=== PATIENT | male | born 1995 | race Two or more races ===

== ENCOUNTER 2025-03-07 01:56 | Emergency (ER) | payer MEDICAID, OTHER ==
[~2025-03-07] VITALS: Ht 170.2 cm; Wt 40.8 kg
[2025-03-07 02:20] VITALS: TEMP 95.9
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
[2025-03-07] MEDS: EPINEPHrine HCL 250 ML IV SCH (02:30)
[2025-03-07 02:40] VITALS: BP 77/36; PULSE 78; RESP 16; O2SAT 99
[2025-03-07] MEDS ORDERED: EPINEPHrine HCL 250 ML IV SCH (02:45)
[2025-03-07] MEDS: VANCOMYCIN 1GM/250ML KIT 250 ML IV ONE (03:15)
[2025-03-07] MEDS: PANTOPRAZOLE 40 MG/10 ML VIAL INJ IV ONE (03:20)
[2025-03-07] MEDS: NOREPINEPHRINE 8 MG/250ML KIT 250 ML IV SCH (03:20)
--- NOTE | 2025-03-07 03:21 | DVH ---
CHEST RADIOGRAPH Indication: s/p intubation and central line Technique: Single frontal view of the chest was obtained COMPARISON: None FINDINGS: Lines and Tubes: Endotracheal tube tip projects approximately 3.0 cm above the level of the ki. Right internal jugular central venous catheter tip projects over the cavoatrial junction. Lungs: Diffuse moderately consolidative appearing bilateral pulmonary airspace disease. Pleura: No effusion. No pneumothorax. Cardiomediastinal contours: Unremarkable Bones: Unremarkable IMPRESSION: 1. Endotracheal tube and right internal jugular central venous catheter in appropriate position. 2. Diffuse moderately consolidative appearing bilateral pulmonary airspace disease.
[2025-03-07 03:26] LABS: Hematocrit 21.5 % (41.0-53.0); Mean Corpuscular Hemoglobin 23.1 pg (28.0-32.0); Mean Corpuscular Volume 97.0 fL (80.0-100.0)
[2025-03-07 03:35] LABS: Anion Gap 22.00001 (5-15); BUN/Creatinine Ratio 22.1 (10.0-20.0); Calcium 8.7 mg/dL (8.7-10.4)
[2025-03-07 03:36] LABS: Alanine Aminotransferase 57 U/L (7-40); Albumin 1.3 g/dL (3.2-4.8); Alkaline Phosphatase 297 U/L (46-116); Bilirubin, Total 0.2 mg/dL (0.2-1.0); Blood Urea Nitrogen 62 mg/dL (9-23); Chloride 90 mmol/L (98-107); Glucose 366 mg/dL (74-106); Sodium 122 mmol/L (136-145); Total Protein 3.7 g/dL (5.7-8.2)
--- NOTE | 2025-03-07 03:37 | RESUS ---
PATRICIA SOLIZ ASSESSSMENT History of Events History of Events: Family brought patient POV to the ED. Upon arrival to ED, Patient was unresposive with agonal respirations. Staff checked for a pulse and patient was pulseless. CPR initiated and patricia soliz was called. Patient was taken to bed 6. Initial Information Date: Mar 07, 2025 Time: 02:01 Location of Arrest: ER Arrest Witnessed: Yes CPR started initial time: 02:01 CPR started by whom: Hospital Staff Type of arrest: Cardiac, Respiratory, Adult, Witnessed Spontaneous Respirations: No Pulse Present: No Monitoring: ECG, Pulse Oximetry, Telemetry Crash Cart Opened and Supplies: Yes Airway Ventilation Breathing at Onset: Agonal Oxygen Delivery Method: Ambu-Bag Time of first Assisted Ventila: 02:01 Artificial Ventilation: Bag/Mask Intubation Time: 02:12 Intubation Size: 7.5 cuffed Intubated by: Dr. Bennett Intubation Attempts: 1 Intubated orally: Yes Intubated Nasaly: No Tube secured at: 22 (cm at teeth) Cricoid pressure done: Yes CO2 indicator used: Yes Confirmation: Auscultation, Exhaled CO2, Chest X-ray Suctioning (Oral/Tracheal): Yes Comments: Patient intubated after ROSC achieved. Coffee ground emesis noted. Circulation Circulation #1: Time: 02:01 Pulse Rate (adult): 0 Blood Pressure Systolic: 0 Blood Pressure Diastolic: 0 Temperature (Fahrenheit): 95.8 (F; temporal) Circulation #2: Time: 02:02 Pulse Rate (adult): 0 Blood Pressure Systolic: 0 Blood Pressure Diastolic: 0 Circulation Comment: Asystole Circulation #3: Time: 02:04 Pulse Rate (adult): 0 Blood Pressure Systolic: 0 Blood Pressure Diastolic: 0 Circulation Comment: Asystole Circulation #4: Time: 02:06 Pulse Rate (adult): 0 Blood Pressure Systolic: 0 Blood Pressure Diastolic: 0 Circulation Comment: PEA Circulation #5: Time: 02:08 Pulse Rate (adult): 86 Blood Pressure Systolic: 156 Blood Pressure Diastolic: 126 Circulation Comment: Rosc Circulation #6: Time: 02:13 Pulse Rate (adult): 80 Blood Pressure Systolic: 56 Blood Pressure Diastolic: 49 Procedure - IV Procedure - IV : IV start time: 02:13 IV Side: Right IV Location: Forearm Anterior IV Catheter Type: Saline Lock IV Placed: In Hospital IV Placed by Wendy Degroot RN IV Gauge: 20 IV Line Care: Saline Flush Procedure - Intraosseous Time of intraosseous: 02:01 Size of intraosseous: 22 Site of Intraosseous: Tibia hayes-medial (Proximal left tib) Intraosseous inserted by: Jose Reed RN Number of attempts for Intraos: 1 Medications & Response Medications and Responses #1: Medication Time: 02:02 ADULT Medications Given ADULT: Epinephrine 1 mg Route of Administration: IO Heart Rate: 0 EKG Rhythm: Asystole Blood Pressure Systolic: 0 Blood Pressure Diastolic: 0 Respiratory Rate: 0 EKG Rhythm: Asystole Medications and Responses #2: Medication Time: 02:04 ADULT Medications Given ADULT: Sodium Bacarbinate 50 meq Route of Administration: IO Heart Rate: 0 EKG Rhythm: Asystole Blood Pressure Systolic: 0 Blood Pressure Diastolic: 0 Respiratory Rate: 0 Medications and Responses #3: Medication Time: 02:05 ADULT Medications Given ADULT: D50 (amp) Route of Administration: IO Medication Comment: [id number] Heart Rate: 0 EKG Rhythm: Asystole Blood Pressure Systolic: 0 Blood Pressure Diastolic: 0 Respiratory Rate: 0 EKG Rhythm: Asystole Medications and Responses #4: Medication Time: 02:06 ADULT Medications Given ADULT: Epinephrine 1 mg Route of Administration: IO Heart Rate: 0 EKG Rhythm: PEA Blood Pressure Systolic: 0 Blood Pressure Diastolic: 0 Respiratory Rate: 0 EKG Rhythm: PEA Nurses Notes Yudith Coma Scale Eye Opening: None (1) [place] Coma Scale Verbal: None (1) [place] Coma Scale Motor: None (1) Glascow Total: 3 Pupil Reaction: Non Reactive Bedside Blood Glucose: 47 EKG Rhythm: Atrial Fibrillation (A-fib with RBBB, HR-75 at 0220) Time Code Ended Time Code Ended: 02:08 Post Arrest Status: Ventilated Outcome of code: Successful Family notified: Yes Code Team Present: Dr. Roopa LÓPEZ MD; Jose Reed RN - ER Charge; Patti Waggoner RN - Credit Control Manager; Alon Schneider RN - Credit Control Manager; Demi Tanner RN; Chinyere Degroot RN; Wendy Degroot RN; Joey Chahal RN; Abi B, RT; Roque S, ERT; Janet G, ERT; Elena O, EMT student; Kurtis Cain, EMT student Post Resuscitation Neurologica Pupil Size: 3 ROSC Time of ROSC: 02:08 Pt Meets Criteria for Therapeu: Yes Alon Vigil Mar 07, 2025 03:37
[2025-03-07 03:39] LABS: Carbon Dioxide < 10 mmol/L (20-31); Hemoglobin 5.1 g/dL (13.5-17.5); Potassium 7.7 mmol/L (3.5-5.1)
[2025-03-07] MEDS: LACTATED RINGER'S 2,000 ML IV ONE (03:45)
[2025-03-07] MEDS ORDERED: ALBUTEROL SULF 2.5 MG/0.5ML(0.5%) NEB SOLN NEB ONE (03:45)
[2025-03-07 03:48] LABS: Prothrombin Time 55.8 sec (9.3-11.8)
[2025-03-07 03:52] LABS: INR 6.32 (0.9-1.15); Partial Thromboplastin Time > 139.0 SEC (24.5-34.5)
[2025-03-07 03:53] LABS: Lactic Acid w/Reflex 21.2 mmol/L (0.4-2.0)
[2025-03-07] MEDS: PHENYLEPHRINE IV 250 ML IV ONE ×2 (03:56→04:05)
[2025-03-07] MEDS ORDERED: SODIUM BICARB 50mEq/50ml Vial 75 ML in D5W 5% 1,000 ML IV ONE (04:00)
[2025-03-07] MEDS: CALCIUM GLUC 1,000mg/50ml-NS 50 ML IV ONE (04:14)
[2025-03-07] MEDS: DEXTROSE (50%) 50ML SYRG IV ONE (04:14)
[2025-03-07] MEDS: SODIUM BICARB 8.4% 50Meq/50ml SYR INJ IV ONE (04:15)
[2025-03-07 04:19] VITALS: BP 62/36; PULSE 76; RESP 16; O2SAT 98
[2025-03-07] MEDS: CEFEPIME 1GM/50ML 50 ML IV ONE (04:20)
[2025-03-07] MEDS: InsuLIN REG 1unit/0.01ml Soln (100units/ml) IV ONE (04:20)
[2025-03-07] MEDS: SODIUM ZIRCONIUM CYCL 10 GM PAK GT ONE (04:22)
[2025-03-07 05:54] LABS: Nucleated Red Blood Cells % 1.0 %; Total Cells Counted 100.0 (100)
[2025-03-07 05:55] LABS: Anisocytosis Moderate
--- NOTE | 2025-03-07 05:56 | RESUS ---
CODE BLUE ASSESSSMENT History of Events History of Events: Patients heart rate bradyed down. No pulses felt upon palpation. CPR initiated and Code blue called. Initial Information Date: Mar 07, 2025 Time: 04:32 Location of Arrest: ER Arrest Witnessed: Yes CPR started initial time: 04:32 CPR started by whom: Hospital Staff Type of arrest: Cardiac, Respiratory, Adult, Witnessed Spontaneous Respirations: No (Pt on ventilator) Pulse Present: No Monitoring: ECG, Pulse Oximetry, Telemetry Crash Cart Opened and Supplies: Yes Airway Ventilation Comments: Patient intubated during previous code Circulation Circulation #1: Time: 04:32 Pulse Rate (adult): 0 Blood Pressure Systolic: 0 Blood Pressure Diastolic: 0 Circulation Comment: asystole Circulation #2: Time: 04:34 Pulse Rate (adult): 0 Blood Pressure Systolic: 0 Blood Pressure Diastolic: 0 Circulation Comment: asystole Circulation #3: Time: 04:36 Pulse Rate (adult): 0 Blood Pressure Systolic: 0 Blood Pressure Diastolic: 0 Circulation Comment: asystole Circulation #4: Time: 04:38 Pulse Rate (adult): 0 Blood Pressure Systolic: 0 Blood Pressure Diastolic: 0 Circulation Comment: asystole; TOD Medications & Response Medications and Responses #1: Medication Time: 04:32 ADULT Medications Given ADULT: Epinephrine 1 mg Route of Administration: IV Heart Rate: 0 EKG Rhythm: Asystole Blood Pressure Systolic: 0 Blood Pressure Diastolic: 0 Respiratory Rate: 0 Medications and Responses #2: Medication Time: 04:34 ADULT Medications Given ADULT: Sodium Bacarbinate 50 meq Route of Administration: IV Heart Rate: 0 EKG Rhythm: Asystole Blood Pressure Systolic: 0 Blood Pressure Diastolic: 0 Respiratory Rate: 0 EKG Rhythm: Asystole Medications and Responses #3: Medication Time: 04:36 ADULT Medications Given ADULT: Epinephrine 1 mg Route of Administration: IV Heart Rate: 0 EKG Rhythm: Asystole Blood Pressure Systolic: 0 Blood Pressure Diastolic: 0 Respiratory Rate: 0 Medications and Responses #4: Medication Time: 04:37 ADULT Medications Given ADULT: Sodium Bacarbinate 50 meq Route of Administration: IV Heart Rate: 0 EKG Rhythm: Asystole Blood Pressure Systolic: 0 Blood Pressure Diastolic: 0 Respiratory Rate: 0 EKG Rhythm: Asystole Procedure - NG/OG Tube Procedure - NG/OG Tube : Type of gastric tube placed: OG Gastric Tube Location: Oral Tube Size: 16 GI Tube Secured: Yes Gastric Tube Suction Type/Desc: Low, Intermittant Gastric Content Description: None NG Tube Patency/Placement: Patent Comment 70 cm at the teeth Procedure - Central Venous Cat Central venous catheter site: R IJ Central Venous Catheter Insert: Dr Blas Procedure - Mcnamara Catheter Urinary Catheter Type/Location: Uretheral (Mcnamara) Urinary Catheter Size: 16 Urine Appearance: Cloudy Urine Color: Yellow Mcnamara Catheter Secured: Yes Comment: Patient came with a mcnamara catheter from home. Nurses Notes [place] Coma Scale Eye Opening: None (1) [place] Coma Scale Verbal: None (1) Yudith Coma Scale Motor: None (1) Glascow Total: 3 Pupil Reaction: Non Reactive Time Code Ended Time Code Ended: 04:38 Post Arrest Status: Outcome of code: Unsuccessful Patient pronounced by: Dr. Blas Time patient pronounced: 04:38 Family notified: Yes Code Team Present: Dr. Blas; ED Clinical Forecast Analyst Jose RN; Alon Schneider RN - Pumper Helper; Patti Waggoner RN - supervisor cigar making machine; Wendy Wallace RN; Bertha Gamez RT; Roque Olsen ERT; Cornelius Ramos RN; Tammy Espinal RN; Jarret Wallace RN; Kurtis Cain, EMT student. Alon Vigil Mar 07, 2025 05:56
== END 2025-03-07 04:41 ==
LOC: ER 01:56
DX: T68.XXXA Hypothermia, initial encounter (principal); I46.9 Cardiac arrest, cause unspecified; D65 Disseminated intravascular coagulation [defibrination syndrome]; J80 Acute respiratory distress syndrome; E87.21 Acute metabolic acidosis; R65.21 Severe sepsis with septic shock; K92.2 Gastrointestinal hemorrhage, unspecified; E16.2 Hypoglycemia, unspecified; L89.90 Pressure ulcer of unspecified site, unspecified stage; E87.5 Hyperkalemia; D64.9 Anemia, unspecified; G82.20 Paraplegia, unspecified; Z93.3 Colostomy status; W34.00XA Accidental discharge from unspecified firearms or gun, initial encounter; Y93.89 Activity, other specified; Y92.89 Other specified places as the place of occurrence of the external cause; Y99.8 Other external cause status
CPT/HCPCS: 31500; 36415; 36556; 36600; 71045; 80053; 82805; 82947; 83605; 85007; 85027; 85610; 85730; 86850; 86900; 86901; 86920; 87040; 87070; 87076; 87077; 87186; 87205; 92950; 94640; 96365; 96367; 96368; 96375; 99291; J0613; J0692; J1815; J2371; J2470; J3373; J7042; J7070; 82962; 94002